=== PATIENT | female | born 1960 | race Caucasian/White ===

== ENCOUNTER 2016-04-27 13:54 | Emergency (ER) | payer MEDICARE, MEDICAID ==
--- NOTE | 2016-04-27 14:03 | ER Document Report ---
ED General <DIAZ RUFF - Last Filed: 04/27/16 15:43> - General Mode of Arrival: Medic Information source: Patient TRAVEL OUTSIDE OF THE [place] IN LAST 30 DAYS: No - HPI Patient complains to provider of: Chest Pain Onset: This afternoon Onset/Duration: Sudden, Better Quality of pain: Sharp, Stabbing Associated symptoms: Headache, Sweating <ANTHONY BEAUCHAMP - Last Filed: 04/27/16 16:13> - General Chief Complaint: Chest Pain > 30 Stated Complaint: CHEST PAIN Notes: Patient is a 55-year-old female presenting to the emergency department concerned of left-sided sharp, stabbing chest pain onset at approximately 0120 today. The pain only lasted for a few minutes, but she was sent here by urgent care with a blood pressure of 175/88. Patient was given nitroglycerin at the urgent care as well as in the ambulance. Patient states her pain resolved after the first nitroglycerin. Prior to that, patient was at her psychiatrist' s office where she had high blood pressure, so that is why she went to urgent care. Patient states for the past 2 weeks she has had constant headache and diaphoresis. Patient also states she has had intermittent heart racing. Patient is prescribed nitroglycerin, although she has never had a heart attack, stent, or cardiac catheterization. (ANTHONY BEAUCHAMP) - Related Data Allergies/Adverse Reactions: tramadol HCl [From [facility]] Allergy (Severe, Verified 04/27/16 14:01) Seizure Past Medical History - General Information source: Patient - Social History Smoking Status: Never Smoker Cigarette use (# per day): No Drug Abuse: None Family History: Reviewed & Not Pertinent - Past Medical History Cardiac Medical History: Reports: Hx Hypercholesterolemia Denies: Hx Heart Attack Pulmonary Medical History: Reports: Hx Pneumonia Denies: Hx COPD Neurological Medical History: Reports: Hx Seizures Psychiatric Medical History: Reports: Hx Anxiety, Hx Bipolar Disorder, Hx Depression Past Surgical History: Reports: Hx Appendectomy, Hx Section - x2, Hx Cholecystectomy, Hx Hysterectomy, Hx Orthopedic Surgery - back-07/16. Denies: Hx Cardiac Catheterization, Hx Cardiac Surgery - Immunizations Hx Diphtheria, Pertussis, Tetanus Vaccination: Yes - 008 <ANTHONY BEAUCHAMP - Last Filed: 04/27/16 16:13> Review of Systems - Review of Systems Constitutional: See HPI, Diaphoresis EENT: No symptoms reported Cardiovascular: See HPI, Chest pain, Heart racing Respiratory: No symptoms reported Gastrointestinal: No symptoms reported Genitourinary: No symptoms reported Female Genitourinary: No symptoms reported Musculoskeletal: No symptoms reported Skin: No symptoms reported Hematologic/Lymphatic: No symptoms reported Neurological/Psychological: See HPI, Headaches -: Yes All other systems reviewed and negative <ANTHONY BEAUCHAMP - Last Filed: 04/27/16 16:13> Physical Exam - General General appearance: Appears well, Alert - HEENT Head: Normocephalic, Atraumatic Eyes: Normal Pupils: PERRL - Respiratory Respiratory status: No respiratory distress Chest status: Nontender Breath sounds: Normal Chest palpation: Normal - Cardiovascular Rhythm: Regular Heart sounds: Normal auscultation Murmur: No - Abdominal Inspection: Normal Distension: No distension Bowel sounds: Normal Tenderness: Nontender Organomegaly: No organomegaly - Back Back: Normal, Nontender - Extremities General upper extremity: Normal inspection General lower extremity: Normal inspection - Neurological Neuro grossly intact: Yes Cognition: Normal Rosmery Coma Scale Eye Opening: Spontaneous Rosmery Coma Scale Verbal: Oriented Rosmery Coma Scale Motor: Obeys Commands Rosmery Coma Scale Total: 15 Speech: Normal - Psychological Associated symptoms: Normal affect, Normal mood - Skin Skin Temperature: Warm Skin Moisture: Dry Skin Color: Normal <ANTHONY BEAUCHAMP - Last Filed: 04/27/16 16:13> - Vital signs Vitals: Pulse Ox 95 04/27/16 14:00 (DIAZ RUFF) Course - Laboratory Result Diagrams: 04/27/16 14:15 04/27/16 14:15 <DIAZ RUFF - Last Filed: 04/27/16 15:43> - Laboratory Result Diagrams: 04/27/16 14:15 04/27/16 14:15 <ANTHONY BEAUCHAMP - Last Filed: 04/27/16 16:13> - Re-evaluation Re-evalutation: 04/27/16 15:28 I personally performed the services described in the documentation, reviewed and edited the documentation which was dictated to my scribe in my presence, and it accurately records my words and actions. Patient presents seem her department the chief complaint of chest pain prior to arrival she said it was sharp and stabbing lasted a few minutes. Patient states that she sees Dr. Quintero historically a read the report records were she had a stress test last year. She has never been diagnosed with an KS or had cardiac stents placed. She states that she takes nitroglycerin every other day. 4 chest pain that lasts seconds and she'll take 2 of them and I'll go away. The chest pain today lasted a few seconds she had been given a nitroglycerin 2 said the first romantic go away. She is not complaining of any recurrent chest pain. None of her symptoms are exertional diaphoretic shortness of breath she's been stable emergency from stable initial enzymes and EKG. We will DC atypical chest pain. Patient's records state that she has a history of angina but there is no documentation that she's ever had an KS stents or even a cardiac catheterization patient confirms this. She is stable for discharge for primary care physician in one day return for increasing worsening or new symptoms 04/27/16 15:31 (DIAZ RUFF) - Vital Signs Vital signs: Temp Pulse Resp BP Pulse Ox 98.4 F 78 13 130/87 H 97 04/27/16 14:13 04/27/16 14:13 04/27/16 14:13 04/27/16 14:13 04/27/16 14:13 (DIAZ RUFF) - EKG Interpretation by Me Additional EKG results interpreted by me: 04/27/16 15:27 EKG interpreted by myself sinus rhythm at [address] segment elevation or depression as compared to the previous EKG (DIAZ RUFF) Discharge <DIAZ RUFF - Last Filed: 04/27/16 15:43> <ANTHONY BEAUCHAMP - Last Filed: 04/27/16 16:13> - Discharge Clinical Impression: Chest pain Qualifiers: Chest pain type: unspecified Qualified Code(s): R07.9 - Chest pain, unspecified Condition: Stable Additional Instructions: Chest Pain of Unclear Cause The exact cause of your chest pain isn't clear. Fortunately, there is no evidence of a dangerous medical condition. Further testing may be required to find the source of the pain. Most often, we find that this pain is coming from the chest wall -- the muscles or rib joints in the chest. But chest pain can come from the lung and lung lining, the esophagus, the heart valves or heart lining, and even the stomach or gallbladder. Rest. Eat lightly until the pain is gone. We may prescribe medicine for pain and inflammation. You should call the physician immediately if the pain radiates to the shoulder, jaw or arms; if you start to run a fever or develop a cough; or if you develop shortness of breath, or other new or alarming symptoms. Referrals: [facility] [Provider Group] - Follow up tomorrow (Call for an appointment to be seen in one to 2 days return for increasing worsening or new symptoms) Scribe Documentation - Scribe Written by Gerson:: Anthony Beauchamp 04/27/2016 14:03 acting as scribe for :: Jurgen <ANTHONY BEAUCHAMP - Last Filed: 04/27/16 16:13>
[2016-04-27 14:32] LABS: ABSOLUTE BASOPHILS # (AUTO) 0.1 10^3/uL (0.0-0.2); ABSOLUTE EOSINOPHILS # (AUTO) 0.2 10^3/uL (0.0-0.6); ABSOLUTE MONOCYTES (AUTO) 0.6 10^3/uL (0.1-1.4); BASOPHILS % (AUTO) 0.8 % (0-2); EOSINOPHILS % (AUTO) 1.9 % (0-6); HEMOGLOBIN 13.6 g/dL (12.0-15.5); HGB HCT DIFFERENCE 0.8; LYMPHOCYTES % (AUTO) 22.8 % (13-45); MEAN CORPUSCULAR HEMOGLOBIN 27.6 pg (27.0-33.4); MEAN CORPUSCULAR HGB CONC 33.9 g/dL (32.0-36.0); MEAN CORPUSCULAR VOLUME 81 fl (80-97); MONOCYTES % (AUTO) 6.8 % (3-13); RED BLOOD COUNT 4.92 10^6/uL (3.72-5.28); RED CELL DISTRIBUTION WIDTH 13.5 % (11.5-14.0); SEGMENTED NEUTROPHILS % (AUTO) 67.7 % (42-78); WHITE BLOOD COUNT 8.9 10^3/uL (4.0-10.5)
[2016-04-27 14:40] LABS: ALANINE AMINOTRANSFERASE 25 U/L (9-52); ALBUMIN 4.9 g/dL (3.5-5.0); ALKALINE PHOSPHATASE 70 U/L (38-126); ANION GAP 11 (5-19); ASPARTATE AMINO TRANSFERASE 25 U/L (14-36); BILIRUBIN,TOTAL 0.6 mg/dL (0.2-1.3); BLOOD UREA NITROGEN 8 mg/dL (7-20); CALCIUM 10.2 mg/dL (8.4-10.2); CARBON DIOXIDE 29 mmol/L (22-30); CHLORIDE 99 mmol/L (98-107); CREATINE KINASE 45 U/L (30-135); CREATININE RESULT 0.58 mg/dL (0.52-1.25); GLUCOSE 99 mg/dL (75-110); POTASSIUM 3.8 mmol/L (3.6-5.0); SODIUM 138.6 mmol/L (137-145); TOTAL PROTEIN 7.6 g/dL (6.3-8.2)
[2016-04-27 14:53] LABS: CREATINE KINASE MB 0.37 ng/mL (<4.55)
[2016-04-27 14:55] LABS: TROPONIN I < 0.012 ng/mL
--- NOTE | 2016-04-27 14:56 | EKG REPORT ---
SEVERITY:- NORMAL ECG - SINUS RHYTHM : Confirmed by: Ina Quintero MD 27-Apr-2016 14:56:17
[2016-04-27 16:33] VITALS: BP 124/103
== END 2016-04-27 16:25 | disposition home or self-care (01) ==
LOC: ER 13:54
DX: R07.89 Other chest pain (principal); R51 Headache; R61 Generalized hyperhidrosis; R00.0 Tachycardia, unspecified; Z88.5 Allergy status to narcotic agent; Z79.899 Other long term (current) drug therapy
CPT/HCPCS: 36415; 71010; 80053; 82550; 82553; 84484; 85025; 93005; 93010; 99285

== ENCOUNTER 2016-07-13 08:39 | Emergency (ER) | payer MEDICAID, MEDICARE ==
[2016-07-13] MEDS ORDERED: NORMAL SALINE 1000 ML 1,000 ML IV ONE (09:11)
[2016-07-13] MEDS ORDERED: PENICILLIN G BENZATHINE 1.2 MILLION UNIT/2 ML DISP.SYRIN IM ONE (09:11)
[2016-07-13] MEDS ORDERED: ONDANSETRON HCL INJ/PF 4 MG/2 ML SDV IV ONE (09:12)
[2016-07-13] MEDS ORDERED: LIDOCAINE 2% VISCOUS SOLN 20 ML UDCUP PO ONE (09:12)
[2016-07-13 10:26] LABS: ANION GAP 11 (5-19); BLOOD UREA NITROGEN 10 mg/dL (7-20); CALCIUM 8.6 mg/dL (8.4-10.2); CARBON DIOXIDE 29 mmol/L (22-30); CHLORIDE 99 mmol/L (98-107); CREATININE RESULT 0.59 mg/dL (0.52-1.25); GLUCOSE 111 mg/dL (75-110); POTASSIUM 3.3 mmol/L (3.6-5.0); SODIUM 139.2 mmol/L (137-145)
[2016-07-13] MEDS ORDERED: DEXAMETHASONE SOD PHOS INJ 10 MG/1 ML VIAL IV ONE (10:43)
--- NOTE | 2016-07-13 10:51 | ER Document Report ---
ED General - General Chief Complaint: Vomiting Stated Complaint: FEVER TRAVEL OUTSIDE OF THE [place] IN LAST 30 DAYS: No - HPI Patient complains to provider of: vomiting fever nausea Onset: Other Notes: Patient coming in for evaluation of nausea vomiting fever. Patient states that she was diagnosed with strep throat yesterday was given azithromycin patient states she is unable to tolerate her azithromycin and continues to vomit. Patient does have a fever upon arrival was able to tolerate liquid Tylenol. Patient otherwise denies any past medical history. - Related Data Allergies/Adverse Reactions: tramadol HCl [From [facility]] Allergy (Severe, Verified 07/13/16 08:46) Seizure Past Medical History - Social History Smoking Status: Never Smoker Chew tobacco use (# tins/day): No Frequency of alcohol use: None Drug Abuse: None Family History: Reviewed & Not Pertinent Patient has suicidal ideation: No Patient has homicidal ideation: No - Past Medical History Cardiac Medical History: Reports: Hx Hypercholesterolemia Denies: Hx Heart Attack Pulmonary Medical History: Reports: Hx Pneumonia Denies: Hx COPD Neurological Medical History: Reports: Hx Seizures Renal/ Medical History: Denies: Hx Peritoneal Dialysis Psychiatric Medical History: Reports: Hx Anxiety, Hx Bipolar Disorder, Hx Depression Past Surgical History: Reports: Hx Appendectomy, Hx Section - x2, Hx Cholecystectomy, Hx Hysterectomy, Hx Orthopedic Surgery - back-07/16. Denies: Hx Cardiac Catheterization, Hx Cardiac Surgery - Immunizations Hx Diphtheria, Pertussis, Tetanus Vaccination: Yes - 008 Review of Systems - Review of Systems Constitutional: Fever EENT: Other - Strep throat Cardiovascular: No symptoms reported Respiratory: No symptoms reported Gastrointestinal: No symptoms reported Genitourinary: No symptoms reported Female Genitourinary: No symptoms reported Musculoskeletal: No symptoms reported Skin: No symptoms reported Hematologic/Lymphatic: No symptoms reported Neurological/Psychological: No symptoms reported -: Yes All other systems reviewed and negative Physical Exam - Vital signs Vitals: Temp Pulse Resp BP Pulse Ox 101.9 F H 107 H 16 102/70 96 07/13/16 08:46 07/13/16 08:46 07/13/16 08:46 07/13/16 08:46 07/13/16 08:46 Interpretation: Normal - General General appearance: Appears well, Alert - HEENT Head: Normocephalic, Atraumatic Eyes: Normal Conjunctiva: Normal Cornea: Normal Extraocular movements intact: Yes Eyelashes: Normal Pupils: PERRL Ears: Normal External canal: Normal Tympanic membrane: Normal Sinus: Normal Nasal: Normal Pharynx: Erythema Neck: Normal - Respiratory Respiratory status: No respiratory distress Chest status: Nontender Breath sounds: Normal Chest palpation: Normal - Cardiovascular Rhythm: Regular Heart sounds: Normal auscultation Murmur: No - Abdominal Inspection: Normal Distension: No distension Bowel sounds: Normal Tenderness: Nontender Organomegaly: No organomegaly - Back Back: Normal, Nontender - Extremities General upper extremity: Normal inspection, Nontender, Normal color, Normal ROM , Normal temperature General lower extremity: Normal inspection, Nontender, Normal color, Normal ROM , Normal temperature, Normal weight bearing. No: Jason's sign - Neurological Neuro grossly intact: Yes Cognition: Normal Orientation: AAOx4 Rosmery Coma Scale Eye Opening: Spontaneous Rosmery Coma Scale Verbal: Oriented Rosmery Coma Scale Motor: Obeys Commands Thoreau Coma Scale Total: 15 Speech: Normal Motor strength normal: LUE, RUE, LLE, RLE Sensory: Normal - Psychological Associated symptoms: Normal affect, Normal mood - Skin Skin Temperature: Warm Skin Moisture: Dry Skin Color: Normal Course - Re-evaluation Re-evalutation: 07/13/16 14:25 Patient's laboratory data showed hypokalemia. Patient was able tolerate orals. Patient was given a dose of Bicillin for her previous diagnosis strep throat. Patient's temperature did improve Tylenol. Patient also be given a dose of Decadron patient states feeling better after medical treatment will be discharged home - Vital Signs Vital signs: Temp Pulse Resp BP Pulse Ox 99.3 F 81 19 108/60 97 07/13/16 11:24 07/13/16 11:24 07/13/16 11:24 07/13/16 11:24 07/13/16 11:24 - Laboratory Result Diagrams: 07/13/16 09:50 Laboratory results interpreted by me: 07/13/16 09:50 Potassium 3.3 L Glucose 111 H Discharge - Discharge Clinical Impression: Strep throat, Medication side effects, Hypokalemia Nausea & vomiting Qualifiers: Vomiting type: unspecified Vomiting Intractability: unspecified Qualified Code( s): R11.2 - Nausea with vomiting, unspecified Condition: Good Disposition: HOME, SELF-CARE Instructions: Vomiting ([facility]), Strep Throat ([facility]), Fever ([facility]), Hypokalemia ([facility] ) Additional Instructions: Laboratory today shows no critical etiology. More likely her nausea vomiting was exacerbated due to the azithromycin. We gave you a shot of penicillin today that will cure your strep throat. You may take the Magic mouthwash as prescribed for throat pain. Zofran for nausea. You may take Tylenol Motrin for fevers and generalized pain. Return to ER symptoms worsen follow-up primary care physician. Prescriptions: Magic Mouthwash 5 ml PO Q6 #120 Ondansetron [Zofran Odt 4 mg Tablet] 1 - 2 tab PO Q4H PRN #20 tab.rapdis PRN Reason: For Nausea/Vomiting Forms: Return to Work
[2016-07-13 11:27] VITALS: BP 108/60
== END 2016-07-13 11:25 | disposition home or self-care (01) ==
LOC: ER 08:39
DX: J02.0 Streptococcal pharyngitis (principal); E87.6 Hypokalemia; R11.2 Nausea with vomiting, unspecified; R50.9 Fever, unspecified
CPT/HCPCS: 99283; 96372; 96361; 96374; 96375; 36415; 80048; J3490; J0561; J2405; J7030; J1100

== ENCOUNTER 2016-08-25 13:28 | Emergency (ER) | payer MEDICARE ==
[2016-08-25 13:42] VITALS: BP 104/76
--- NOTE | 2016-08-25 18:39 | EKG REPORT ---
SEVERITY:- ABNORMAL ECG - SINUS RHYTHM PROBABLE INFERIOR INFARCT, AGE INDETERMINATE CONSIDER POSTERIOR WALL INVOLVEMENT : Confirmed by: Brian Amor MD 25-Aug-2016 18:38:54
== END 2016-08-25 13:40 | disposition left against medical advice (07) ==
LOC: ER 13:28
DX: Z53.21 Procedure and treatment not carried out due to patient leaving prior to being seen by health care provider (principal)
CPT/HCPCS: 93005; 93010

== ENCOUNTER 2016-10-27 23:27 | Emergency (ER) | payer MEDICARE, MEDICAID ==
[2016-10-28] MEDS ORDERED: ASPIRIN 81 MG TABLET, CHEWABLE PO ONE
[2016-10-28] MEDS ORDERED: ASPIRIN 81 MG TABLET, CHEWABLE ONE (00:03)
[2016-10-28 00:12] LABS: ABSOLUTE BASOPHILS # (AUTO) 0.1 10^3/uL (0.0-0.2); ABSOLUTE EOSINOPHILS # (AUTO) 0.2 10^3/uL (0.0-0.6); ABSOLUTE LYMPHOCYTES (AUTO) 2.8 10^3/uL (0.5-4.7); ABSOLUTE MONOCYTES (AUTO) 0.6 10^3/uL (0.1-1.4); ABSOLUTE NEUT (AUTO) 4.9 10^3/uL (1.7-8.2); BASOPHILS % (AUTO) 0.7 % (0-2); EOSINOPHILS % (AUTO) 2.7 % (0-6); HEMATOCRIT 38.5 % (36.0-47.0); HEMOGLOBIN 13.4 g/dL (12.0-15.5); HGB HCT DIFFERENCE 1.7; LYMPHOCYTES % (AUTO) 32.9 % (13-45); MEAN CORPUSCULAR HEMOGLOBIN 28.1 pg (27.0-33.4); MEAN CORPUSCULAR HGB CONC 34.8 g/dL (32.0-36.0); MEAN CORPUSCULAR VOLUME 81 fl (80-97); MONOCYTES % (AUTO) 7.5 % (3-13); RED BLOOD COUNT 4.78 10^6/uL (3.72-5.28); RED CELL DISTRIBUTION WIDTH 13.2 % (11.5-14.0); SEGMENTED NEUTROPHILS % (AUTO) 56.2 % (42-78); WHITE BLOOD COUNT 8.6 10^3/uL (4.0-10.5)
--- NOTE | 2016-10-28 00:14 | ER Document Report ---
ED Cardiac <ADDI NORTON - Last Filed: 10/28/16 01:11> - General Mode of Arrival: Wheelchair Information source: Patient TRAVEL OUTSIDE OF THE [place] IN LAST 30 DAYS: No - HPI Patient complains to provider of: Chest pain Similar symptoms previously: Yes Recently seen / treated by doctor: No <EDA BERMUDEZ - Last Filed: 10/28/16 01:31> - General Chief Complaint: Chest Pain Stated Complaint: CHEST PAIN Time Seen by Provider: 10/28/16 00:15 Notes: Patient is a 36-year-old female emergency department for chest pain. Patient states that her chest pain was onset at 19:00 this evening and she placed a nitroglycerin patch on the that time. Patient states her chest pain went away at around 19:10. Patient was able to go to sleep her chest pain woke her up at around 22:30-22:45. Patient states her pain for intermittent for about 1 hour until she arrived to the emergency department. Patient states her pain is located in the left side of her breasts, left chest wall, and her left arm and radiating down her left arm. Patient states this pain is different from the previous pain. Patient had a normal echo and normal nuclear medicine stress test 2 years ago. Patient's datastage architect is Dr. Quintero. Patient also had a normal chest x-ray a few months ago which showed a normal heart size. Patient denies any history of cardiac catheterization or stents. (EDA BERMUDEZ) - Related Data Allergies/Adverse Reactions: tramadol HCl [From [facility]] Allergy (Severe, Verified 07/13/16 08:46) Seizure Past Medical History - General Information source: Patient - Social History Smoking Status: Never Smoker Drug Abuse: None Family History: None Patient has suicidal ideation: No Patient has homicidal ideation: No - Past Medical History Cardiac Medical History: Reports: Hx Hypercholesterolemia Pulmonary Medical History: Reports: Hx Pneumonia Neurological Medical History: Reports: Hx Seizures Psychiatric Medical History: Reports: Hx Anxiety, Hx Bipolar Disorder, Hx Depression Past Surgical History: Reports: Hx Appendectomy, Hx Section - x2, Hx Cholecystectomy, Hx Hysterectomy, Hx Orthopedic Surgery - back-07/16 - Immunizations Hx Diphtheria, Pertussis, Tetanus Vaccination: Yes - 008 <EDA BERMUDEZ - Last Filed: 10/28/16 01:31> Review of Systems - Review of Systems Constitutional: No symptoms reported EENT: No symptoms reported Cardiovascular: See HPI, Chest pain Respiratory: No symptoms reported Gastrointestinal: No symptoms reported Genitourinary: No symptoms reported Female Genitourinary: No symptoms reported Musculoskeletal: No symptoms reported Skin: No symptoms reported Hematologic/Lymphatic: No symptoms reported Neurological/Psychological: No symptoms reported -: Yes All other systems reviewed and negative <EDA BERMUDEZ - Last Filed: 10/28/16 01:31> Physical Exam <ERROLADDI - Last Filed: 10/28/16 01:11> - Vital signs Interpretation: Normal <EDA BERMUDEZ - Last Filed: 10/28/16 01:31> - Vital signs Vitals: Temp Pulse Resp BP Pulse Ox 98.0 F 107 H 18 111/80 96 10/27/16 23:30 10/27/16 23:30 10/27/16 23:30 10/27/16 23:30 10/27/16 23:30 - Notes Notes: GENERAL: Alert, interacts well. No acute distress. HEAD: Normocephalic, atraumatic. EYES: Appear normal. Pupils equal, round, and reactive to light. ENT: Moist mucus membranes, tongue midline. NECK: Full range of motion. Supple. Trachea midline. LUNGS: Clear to auscultation bilaterally, no wheezes, rales, or rhonchi. No respiratory distress. No chest wall tenderness to palpation. HEART: Regular rate and rhythm. No murmurs, gallops, or rubs. ABDOMEN: Soft, non-tender. Non-distended. Normal bowel sounds. EXTREMITIES: Moves all 4 extremities spontaneously. Normal strength. No edema. NEUROLOGICAL: Alert and oriented x3. Normal speech. No focal neurological deficits. GSC 15. PSYCH: Normal affect, normal mood. SKIN: Warm, dry, normal turgor. No rashes or lesions noted. (EDA BERMUDEZ) Course - Laboratory Result Diagrams: 10/27/16 23:58 10/27/16 23:58 - Diagnostic Test Radiology reviewed: Image reviewed, Reports reviewed - EKG Interpretation by Nd EKG shows normal: Sinus rhythm - Chest x-ray is unremarkable., [place], Intervals, QRS Complexes. abnormal: ST-T Waves - Diffuse nonspecific repolarization abnormality Rate: Normal - 97 Rhythm: NSR When compared to previous EKG there are: No significant change - Review of several EKG shows she has had this repolarization abnormality off and on for the past few years. <ADDI NORTON - Last Filed: 10/28/16 01:11> - Laboratory Result Diagrams: 10/27/16 23:58 10/27/16 23:58 <EDA BERMUDEZ - Last Filed: 10/28/16 01:31> - Re-evaluation Re-evalutation: 10/28/16 01:13 EKG does not show acute changes, shows diffuse repolarization abnormality which is been present off and on for the past few years. Troponins are undetectable. The patient did have a negative nuclear medicine stress test 2 years ago and a normal echocardiogram 2 years ago. By history, she has never had a cardiac catheterization. She does have nitroglycerin which she states was provided by her datastage architect, but the reason for this is unclear. (ADDI NORTON) - Vital Signs Vital signs: Temp Pulse Resp BP Pulse Ox 98.0 F 107 H 9 L 101/74 94 10/27/16 23:30 10/27/16 23:30 10/28/16 01:20 10/28/16 01:17 10/28/16 01:20 Discharge <ADDI NORTON - Last Filed: 10/28/16 01:11> <EDA BERMUDEZ - Last Filed: 10/28/16 01:31> - Discharge Clinical Impression: Chest pain Qualifiers: Chest pain type: unspecified Qualified Code(s): R07.9 - Chest pain, unspecified Condition: Stable Disposition: HOME, SELF-CARE Additional Instructions: Chest Pain of Unclear Cause: The exact cause of your chest pain isn't clear. Fortunately, there is no evidence of a dangerous medical condition. Further testing may be required to find the source of the pain. Most often, we find that this pain is coming from the chest wall -- the muscles or rib joints in the chest. But chest pain can come from the lung and lung lining, the esophagus, the heart valves or heart lining, and even the stomach or gallbladder. Rest. Eat lightly until the pain is gone. We may prescribe medicine for pain and inflammation. You should call the physician immediately if the pain radiates to the shoulder, jaw or arms; if you start to run a fever or develop a cough; or if you develop shortness of breath, or other new or alarming symptoms. Follow-up with your primary care provider or your datastage architect Monday(today) for recheck. Return to the emergency room if any problems. RETURN TO THE EMERGENCY ROOM IF ANY NEW OR WORSENING SYMPTOMS. Scribe Attestation: 10/28/16 01:14 I personally performed the services described in the documentation, reviewed and edited the documentation which was dictated to the scribe in my presence, and it accurately records my words and actions. (ADDI NORTON) Scribe Documentation - Scribe Written by Gerson:: Gerson Espinosa 10/28/16 1:25 acting as scribe for :: Errol <EDA BERMUDEZ - Last Filed: 10/28/16 01:31>
--- NOTE | 2016-10-28 00:17 | RADIOLOGY REPORT (SQ) ---
EXAM DESCRIPTION: CHEST SINGLE VIEW COMPLETED DATE/TIME: 10/28/2016 12:09 am REASON FOR STUDY: cp COMPARISON: 04/27/2016 EXAM PARAMETERS: NUMBER OF VIEWS: One view. TECHNIQUE: Single frontal radiographic view of the chest acquired. RADIATION DOSE: NA LIMITATIONS: None. FINDINGS: LUNGS AND PLEURA: Small chronic atelectasis or scar of the left lower hemithorax. Otherw ise, No opacities, masses or pneumothorax. No pleural effusion. MEDIASTINUM AND HILAR STRUCTURES: No masses. Contour normal. HEART AND VASCULAR STRUCTURES: Heart normal in size. Normal vasculature. BONES: No acute findings. Moderate dextro convexity. HARDWARE: None in the chest. OTHER: No other significant finding. IMPRESSION: NO ACUTE RADIOGRAPHIC FINDING IN THE CHEST. TECHNICAL DOCUMENTATION: JOB ID: [id number]
[2016-10-28 00:29] LABS: ALANINE AMINOTRANSFERASE 19 U/L (9-52); ALBUMIN 4.5 g/dL (3.5-5.0); ALKALINE PHOSPHATASE 57 U/L (38-126); ANION GAP 11 (5-19); ASPARTATE AMINO TRANSFERASE 20 U/L (14-36); BILIRUBIN,DIRECT 0.3 mg/dL (0.0-0.4); BILIRUBIN,TOTAL 0.4 mg/dL (0.2-1.3); BLOOD UREA NITROGEN 10 mg/dL (7-20); CARBON DIOXIDE 29 mmol/L (22-30); CHLORIDE 100 mmol/L (98-107); CREATINE KINASE 40 U/L (30-135); CREATININE RESULT 0.71 mg/dL (0.52-1.25); GLUCOSE 102 mg/dL (75-110); POTASSIUM 3.7 mmol/L (3.6-5.0); SODIUM 139.7 mmol/L (137-145); TOTAL PROTEIN 7.5 g/dL (6.3-8.2)
[2016-10-28 00:41] LABS: CREATINE KINASE MB 0.43 ng/mL (<4.55)
[2016-10-28 00:49] LABS: TROPONIN I < 0.012 ng/mL
[2016-10-28 01:22] VITALS: BP 101/74
--- NOTE | 2016-10-28 12:15 | EKG REPORT ---
SEVERITY:- ABNORMAL ECG - SINUS RHYTHM NONSPECIFIC REPOL ABNORMALITY, DIFFUSE LEADS : Confirmed by: Ina Quintero MD 28-Oct-2016 12:14:25
== END 2016-10-28 01:27 | disposition home or self-care (01) ==
LOC: ER 23:27
DX: R07.9 Chest pain, unspecified (principal)
CPT/HCPCS: 93005; 99285; 36415; 82553; 82550; 85025; 80053; 84484; 71010; 93010; A9270

== ENCOUNTER 2016-12-01 17:35 | Emergency (ER) | payer MEDICARE ==
--- NOTE | 2016-12-01 18:26 | ER Document Report ---
ED Medical Screen (RME) - General Chief Complaint: Abdominal Pain Stated Complaint: ABDOMINAL PAIN Time Seen by Provider: 12/01/16 18:24 Mode of Arrival: Medic Information source: Patient Notes: This is a 56-year-old female who is brought in by EMS with diffuse abdominal pain, nausea and vomiting. The patient does have a history of chronic back pain (back surgery in the past) and is followed by pain management (Dr Kim.in [place]). The patient states that she had been constipated for the last several days and last night she pushed so hard, she "felt something rip". Patient states she did have a large bowel movement (like a rock) last night after this event. She states when she woke up this morning, she had diffuse abdominal pain, nausea and vomiting. Patient states she is not been able to tolerate any water. Medications: Percocet 30, Opana 15, Seroquel 150, trazodone 75, Xanax 1 Allergies: None Primary CARE physician: She is currently "in between" primary care physicians TRAVEL OUTSIDE OF THE [place] IN LAST 30 DAYS: No - Related Data Allergies/Adverse Reactions: tramadol HCl [From [facility]] Allergy (Severe, Verified 07/13/16 08:46) Seizure Past Medical History - Past Medical History Cardiac Medical History: Reports: Hx Hypercholesterolemia Denies: Hx Heart Attack Pulmonary Medical History: Reports: Hx Pneumonia Denies: Hx COPD Neurological Medical History: Reports: Hx Seizures Renal/ Medical History: Denies: Hx Peritoneal Dialysis Psychiatric Medical History: Reports: Hx Anxiety, Hx Bipolar Disorder, Hx Depression Past Surgical History: Reports: Hx Appendectomy, Hx Section - x2, Hx Cholecystectomy, Hx Hysterectomy, Hx Orthopedic Surgery - back-07/16. Denies: Hx Cardiac Catheterization, Hx Cardiac Surgery - Immunizations Hx Diphtheria, Pertussis, Tetanus Vaccination: Yes - 008 Physical Exam - Vital signs Vitals: Temp Pulse Resp BP Pulse Ox 97.1 F 90 22 H 159/101 H 97 12/01/16 17:48 12/01/16 17:48 12/01/16 17:48 12/01/16 17:48 12/01/16 17:48 Course - Vital Signs Vital signs: Temp Pulse Resp BP Pulse Ox 97.1 F 90 22 H 159/101 H 97 12/01/16 17:48 12/01/16 17:48 12/01/16 17:48 12/01/16 17:48 12/01/16 17:48
[2016-12-01] MEDS ORDERED: NORMAL SALINE 1000 ML 1,000 ML IV PRN (18:27)
[2016-12-01] MEDS ORDERED: ONDANSETRON HCL INJ/PF 4 MG/2 ML SDV IV ONE (18:28)
[2016-12-01 18:59] LABS: ABSOLUTE BASOPHILS # (AUTO) 0.1 10^3/uL (0.0-0.2); ABSOLUTE LYMPHOCYTES (AUTO) 1.9 10^3/uL (0.5-4.7); ABSOLUTE MONOCYTES (AUTO) 0.6 10^3/uL (0.1-1.4); ABSOLUTE NEUT (AUTO) 15.9 10^3/uL (1.7-8.2); BASOPHILS % (AUTO) 0.4 % (0-2); EOSINOPHILS % (AUTO) 0.1 % (0-6); HEMATOCRIT 47.2 % (36.0-47.0); HEMOGLOBIN 16.6 g/dL (12.0-15.5); HGB HCT DIFFERENCE 2.6; LYMPHOCYTES % (AUTO) 10.3 % (13-45); MEAN CORPUSCULAR HEMOGLOBIN 27.9 pg (27.0-33.4); MEAN CORPUSCULAR HGB CONC 35.2 g/dL (32.0-36.0); MEAN CORPUSCULAR VOLUME 79 fl (80-97); MONOCYTES % (AUTO) 3.4 % (3-13); RED BLOOD COUNT 5.96 10^6/uL (3.72-5.28); RED CELL DISTRIBUTION WIDTH 13.3 % (11.5-14.0); SEGMENTED NEUTROPHILS % (AUTO) 85.8 % (42-78); WHITE BLOOD COUNT 18.6 10^3/uL (4.0-10.5)
--- NOTE | 2016-12-01 19:21 | ER Document Report ---
ED GI/ - General Mode of Arrival: Medic Information source: Patient TRAVEL OUTSIDE OF THE [place] IN LAST 30 DAYS: No - HPI Patient complains to provider of: Abdominal pain, Other - constipation Onset: Just prior to arrival Recently seen / treated by doctor: Yes <ROSALIND SNEED - Last Filed: 12/02/16 00:34> <DIAZ RUFF - Last Filed: 12/02/16 03:31> - General Chief Complaint: Abdominal Pain Stated Complaint: ABDOMINAL PAIN Time Seen by Provider: 12/01/16 18:24 Notes: Patient is a 56-year-old female who presents to the emergency department today with complaints of constipation with associated vomiting and abdominal pain. Patient is on opiates chronically and she states that she frequently has constipation. Patient states yesterday she "strained as hard as she could" and woke up this morning with upper abdominal pain. Patient states she has been unable to keep anything down today. Patient states she has tried stool softeners with little relief. (ROSALIND SNEED) - Related Data Allergies/Adverse Reactions: tramadol HCl [From [facility]] Allergy (Severe, Verified 07/13/16 08:46) Seizure Past Medical History - General Information source: Patient - Social History Smoking Status: Never Smoker Cigarette use (# per day): No Chew tobacco use (# tins/day): No Frequency of alcohol use: None Drug Abuse: None Lives with: Family Family History: None - Past Medical History Cardiac Medical History: Reports: Hx Hypercholesterolemia Pulmonary Medical History: Reports: Hx Pneumonia Neurological Medical History: Reports: Hx Seizures Psychiatric Medical History: Reports: Hx Anxiety, Hx Bipolar Disorder, Hx Depression Past Surgical History: Reports: Hx Appendectomy, Hx Section - x2, Hx Cholecystectomy, Hx Gynecologic Surgery - tubal, Hx Hysterectomy, Hx Orthopedic Surgery - back-07/16, Hx Tubal Ligation - Immunizations Hx Diphtheria, Pertussis, Tetanus Vaccination: Yes - 008 <ROSALIND SNEED - Last Filed: 12/02/16 00:34> Review of Systems - Review of Systems Constitutional: No symptoms reported EENT: No symptoms reported Cardiovascular: No symptoms reported Respiratory: No symptoms reported Gastrointestinal: See HPI, Abdominal pain, Vomiting, Constipation. denies: Blood in vomit, Rectal bleeding Genitourinary: No symptoms reported Female Genitourinary: No symptoms reported Musculoskeletal: No symptoms reported Skin: No symptoms reported Hematologic/Lymphatic: No symptoms reported Neurological/Psychological: No symptoms reported -: Yes All other systems reviewed and negative <NARENTRACYROSALIND - Last Filed: 12/02/16 00:34> Physical Exam <NARENROSALIND - Last Filed: 12/02/16 00:34> <ELIAN RUFFMY - Last Filed: 12/02/16 03:31> - Vital signs Vitals: Pulse BP Pulse Ox 90 159/101 H 98 12/01/16 17:46 12/01/16 17:46 12/01/16 17:46 - Notes Notes: Physical Exam: General: Alert, appears well. HEENT: Normocephalic. Atraumatic. PERRL. Extraocular movements intact. Oropharynx clear. Neck: Supple. Non-tender. Respiratory: No respiratory distress. Clear and equal breath sounds bilaterally. Cardiovascular: Regular rate and rhythm. Abdominal: Mild diffuse abdominal tenderness. No distension. Normal Bowel Sounds. Back: Non-tender. No deformity or step off. Extremities: Moves all four extremities. Upper extremities: Normal inspection. Normal ROM. Lower extremities: Normal inspection. No edema. Normal ROM. Neurological: Normal cognition. AAOx4. Normal speech. Psychological: Normal affect. Normal Mood. Skin: Warm. Dry. Normal color. (ROSALIND SNEED) Course - Laboratory Result Diagrams: 12/01/16 18:50 12/01/16 18:50 <ROSALIND SNEED - Last Filed: 12/02/16 00:34> - Laboratory Result Diagrams: 12/01/16 18:50 12/01/16 18:50 <DIAZ RUFF - Last Filed: 12/02/16 03:31> - Re-evaluation Re-evalutation: 12/02/16 00:29 Patient presents emerged from chief plan abdominal pain. Patient has a history of chronic pain and is on chronic narcotics had constipation prior to that and has had persistent progressive constipation since she has been on the narcotics. She does not have a bowel movement for several days at a time. Yesterday she was straining aggressively to try to have a bowel movement she had a large bolus of bowel movement went to bed and woke up the next morning with pain in the middle part of her abdomen. In addition to that she has had a couple episodes of vomiting but no diarrhea. No fever no chills no chest pain or shortness of breath no flank pain or urinary symptoms. On examination she is well-appearing nontoxic nausea is controlled with Zofran abdomen mild tenderness in the mid abdomen certainly no guarding rebound rigidity pulsatile dullness or hernias. Acute abdominal series was negative proceeded to try to do an oral contrast CT patient could not keep the oral contrast down and was vomiting. At this point I did a CT without oral contrast she does not have an obstruction she does not have constipation. Reassessed her multiple examinations her belly soft no tenderness guarding rebound rigidity or peritoneal signs. At this point in a discharge her to home I wrote a hand prescription form of Zantac to deal with the issues of constipation related to narcotics. She is going to follow primary care physician in 1-2 days and discussed reasons for ED return sooner (DIAZ RUFF) - Vital Signs Vital signs: Temp Pulse Resp BP Pulse Ox 98.8 F 96 16 139/83 H 96 12/02/16 00:20 12/02/16 00:20 12/02/16 00:20 12/02/16 00:20 12/02/16 00:20 - Laboratory Laboratory results interpreted by me: 12/01/16 12/01/16 12/01/16 18:50 18:50 20:40 WBC 18.6 H RBC 5.96 H Hgb 16.6 H Hct 47.2 H MCV 79 L Seg Neutrophils % 85.8 H Lymphocytes % 10.3 L Absolute Neutrophils 15.9 H Potassium 3.1 L Chloride 95 L Glucose 161 H Calcium 11.2 H Total Protein 9.0 H Albumin 5.3 H Urine Protein 30 H Urine Ketones 80 H Discharge <ROSALIND SNEED - Last Filed: 12/02/16 00:34> <DIAZ RUFF - Last Filed: 12/02/16 03:31> - Discharge Clinical Impression: Abdominal pain Qualifiers: Abdominal location: unspecified location Qualified Code(s): R10.9 - Unspecified abdominal pain Condition: Stable Disposition: HOME, SELF-CARE Instructions: Abdominal Pain ([facility]) Additional Instructions: Abdominal Pain There are many causes of abdominal pain. Pain can mean a serious problem requiring surgery (such as appendicitis). It can also be an innocent problem that goes away on its own (such as a viral infection). Often, time must pass to determine the cause of pain. The physician does not feel that hospitalization is necessary, at present. Things may change within the next 24 hours. Call the doctor or come back for re- examination if any problems occur, such as: (1) Pain that becomes more severe, steady, or becomes concentrated in one specific area. Also, pain that is more severe with movement or coughing. (2) Vomiting that persists or becomes more frequent. (3) Blood in the vomitus, urine, or bowel movements. Blood in the stool may have a tarry or black appearance. (4) Shaking chills or fever greater than 100 degrees F. (5) The abdomen becomes more distended or swollen. (6) Bowel movements cease. (7) Failure to improve as expected. Follow up with your primary care physician in 2-3 days return for increasing worsening or new symptoms Scribe Attestation: 12/02/16 00:18 I personally performed the services described in the documentation reviewed the documentation recorded by my scribe in my presence and it accurately and completely records my words and actions (DIAZ RUFF) Scribe Documentation - Scribe Written by Gerson:: Gerson Carballo, 12/02/2016 0033 acting as scribe for :: Jurgen <ROSALIND SNEED - Last Filed: 12/02/16 00:34>
[2016-12-01 19:27] LABS: ALANINE AMINOTRANSFERASE 19 U/L (9-52); ALBUMIN 5.3 g/dL (3.5-5.0); ALKALINE PHOSPHATASE 105 U/L (38-126); ANION GAP 18 (5-19); ASPARTATE AMINO TRANSFERASE 36 U/L (14-36); BILIRUBIN,DIRECT 0.4 mg/dL (0.0-0.4); BILIRUBIN,TOTAL 1.1 mg/dL (0.2-1.3); BLOOD UREA NITROGEN 7 mg/dL (7-20); CALCIUM 11.2 mg/dL (8.4-10.2); CARBON DIOXIDE 28 mmol/L (22-30); CHLORIDE 95 mmol/L (98-107); CREATININE RESULT 0.66 mg/dL (0.52-1.25); GLUCOSE 161 mg/dL (75-110); LIPASE 69.5 U/L (23-300); POTASSIUM 3.1 mmol/L (3.6-5.0); SODIUM 141.3 mmol/L (137-145)
--- NOTE | 2016-12-01 19:56 | RADIOLOGY REPORT (SQ) ---
EXAM DESCRIPTION: ACUTE ABDOMEN SERIES COMPLETED DATE/TIME: 12/01/2016 7:30 pm REASON FOR STUDY: n/v/abdominal pain COMPARISON: None. NUMBER OF VIEWS: Three views. TECHNIQUE: PA chest, supine abdomen and upright/decubitus abdomen radiographic images acquired. LIMITATIONS: None. FINDINGS: CHEST: Lungs clear of infiltrates. FREE AIR: None. No abnormal gas collections. BOWEL GAS PATTERN: Few scattered mildly dilated small bowel loops with air fluid levels. . CALCIFICATIONS: No suspicious calcifications. HARDWARE: Cholecystectomy clips. SOFT TISSUES: No gross mass or suggestion of organomegaly. BONES: No acute fracture. Thoracolumbar scoliosis. . OTHER: No other significant finding. IMPRESSION: Few scattered mildly dilated small bowel loops with air fluid levels, possible developin g obstruction. TECHNICAL DOCUMENTATION: JOB ID: [id number] [employer]- All Rights Reserved
[2016-12-01 21:13] LABS: AMORPHOUS SEDIMENT,URINE 1+ /HPF; APPEARANCE,URINE TURBID; BILIRUBIN,URINE NEGATIVE (NEGATIVE); GLUCOSE, URINE NEGATIVE (NEGATIVE); KETONES,URINE 80 mg/dL (NEGATIVE); LEUKOCYTE ESTERASE,URINE NEGATIVE (NEGATIVE); NITRITE,URINE NEGATIVE (NEGATIVE); PROTEIN,URINE 30 mg/dL (NEGATIVE); URINE SPECIFIC GRAVITY 1.011; UROBILINOGEN,URINE NEGATIVE mg/dL (<2.0)
--- NOTE | 2016-12-01 22:36 | RADIOLOGY REPORT (SQ) ---
EXAM DESCRIPTION: CT ABD/PELVIS NO ORAL OR IV COMPLETED DATE/TIME: 12/01/2016 10:14 pm REASON FOR STUDY: abdominal pain cant keep contrast down COMPARISON: None. TECHNIQUE: CT scan of the abdomen and pelvis performed without intravenous or oral contrast. Images reviewed with lung, soft tissue, and bone windows. Reconstructed coronal and sagittal MPR images revi ewed. All images stored on PACS. All CT scanners at this facility use dose modulation, iterative reconstruction, and/or weight based d osing when appropriate to reduce radiation dose to as low as reasonably achievable (ALARA). [facility]: Dose Right [facility]: CareDose [facility]: Dose Right [facility]: Teradose 4D [facility]: [employer] RADIATION DOSE: Up-to-date CT equipment and radiation dose reduction techniques were employed. CTDIv ol: 5.2 mGy. DLP: 252 mGy-cm.mGy. LIMITATIONS: None. FINDINGS: LOWER CHEST: No significant findings. No nodules or infiltrates. NON-CONTRASTED LIVER, SPLEEN, ADRENALS: Evaluation limited by lack of IV contrast. No identified sign ificant masses. PANCREAS: No masses. Mild peripancreatic inflammatory changes. GALLBLADDER: Surgically absent. RIGHT KIDNEY AND URETER: No suspicious masses. Assessment limited by lack of IV contrast. No signif icant calcifications. No hydronephrosis or hydroureter. LEFT KIDNEY AND URETER: No suspicious masses. Assessment limited by lack of IV contrast. No signifi cant calcifications. No hydronephrosis or hydroureter. AORTA AND RETROPERITONEUM: No aneurysm. No retroperitoneal masses or adenopathy. BOWEL AND PERITONEAL CAVITY: No obvious masses or inflammatory changes. No free fluid. APPENDIX: Not visualized. PELVIS, BLADDER, AND ABDOMINAL WALL:No abnormal masses. Moderate free fluid. Bladder normal. BONES: No significant findings. OTHER: No other significant finding. IMPRESSION: Mild peripancreatic inflammatory changes. Moderate pelvic free fluid. COMMENT: Quality ID # [id number]: Final reports with documentation of one or more dose reduction techniques (e.g., Automated exposure control, adjustment of the mA and/or kV according to patient size, use of iterative reconstruction technique) TECHNICAL DOCUMENTATION: JOB ID: [id number]- All Rights Reserved
[2016-12-02 00:41] VITALS: BP 132/78
== END 2016-12-02 00:35 | disposition home or self-care (01) ==
LOC: ER 17:35
DX: R10.9 Unspecified abdominal pain (principal); R11.10 Vomiting, unspecified
CPT/HCPCS: 99284; 96361; 96374; 36415; 83690; 85025; 80053; 81001; 74022; 74176; J2405; J7030

== ENCOUNTER 2017-10-22 11:20 | Observation (INO) | payer MEDICARE ==
[2017-10-22] MEDS ORDERED: ASPIRIN 81 MG TABLET, CHEWABLE PO ONE (12:00)
[2017-10-22] MEDS ORDERED: METOCLOPRAMIDE HCL ORAL SOLN 10 MG/10 ML UDCUP PO ONE (12:01)
[2017-10-22] MEDS ORDERED: LIDOCAINE 2% VISCOUS SOLN 20 ML UDCUP PO ONE (12:01)
[2017-10-22] MEDS ORDERED: MAG HYDROX/AL HYDROX/SIMETH SUSP 30 ML UDCUP PO ONE (12:01)
--- NOTE | 2017-10-22 12:01 | ER Document Report ---
ED Medical Screen (RME) - General Chief Complaint: Chest Pain Stated Complaint: CHEST PAIN Time Seen by Provider: 10/22/17 12:00 TRAVEL OUTSIDE OF THE [place] IN LAST 30 DAYS: No - HPI Notes: 10/22/17 12:01 Chest pain yesterday continues today nausea vomiting did - Related Data Allergies/Adverse Reactions: tramadol HCl [From [facility]] Allergy (Severe, Verified 10/22/17 11:24) Seizure Past Medical History - Social History Chew tobacco use (# tins/day): No Frequency of alcohol use: None Drug Abuse: None - Past Medical History Cardiac Medical History: Reports: Hx Hypercholesterolemia Denies: Hx Heart Attack Pulmonary Medical History: Reports: Hx Pneumonia Denies: Hx COPD Neurological Medical History: Reports: Hx Seizures Renal/ Medical History: Denies: Hx Peritoneal Dialysis Psychiatric Medical History: Reports: Hx Anxiety, Hx Bipolar Disorder, Hx Depression Past Surgical History: Reports: Hx Appendectomy, Hx Section - x2, Hx Cholecystectomy, Hx Gynecologic Surgery - tubal, Hx Hysterectomy, Hx Orthopedic Surgery - back-07/16, Hx Tubal Ligation. Denies: Hx Cardiac Catheterization, Hx Cardiac Surgery - Immunizations Hx Diphtheria, Pertussis, Tetanus Vaccination: Yes - 008 Review of Systems - Review of Systems Cardiovascular: Chest pain Physical Exam - Vital signs Vitals: Temp Pulse Resp BP Pulse Ox 99.1 F 100 20 124/92 H 98 10/22/17 11:42 10/22/17 11:42 10/22/17 11:42 10/22/17 11:42 10/22/17 11:42 - Respiratory Respiratory status: No respiratory distress Chest status: Nontender Breath sounds: Normal Chest palpation: Normal Course - Vital Signs Vital signs: Temp Pulse Resp BP Pulse Ox 99.1 F 100 20 124/92 H 98 10/22/17 11:42 10/22/17 11:42 10/22/17 11:42 10/22/17 11:42 10/22/17 11:42
[2017-10-22 12:33] LABS: ABSOLUTE EOSINOPHILS # (AUTO) 0.1 10^3/uL (0.0-0.6); ABSOLUTE LYMPHOCYTES (AUTO) 1.8 10^3/uL (0.5-4.7); ABSOLUTE MONOCYTES (AUTO) 0.6 10^3/uL (0.1-1.4); BASOPHILS % (AUTO) 0.3 % (0-2); EOSINOPHILS % (AUTO) 0.7 % (0-6); HEMATOCRIT 40.8 % (36.0-47.0); HEMOGLOBIN 14.1 g/dL (12.0-15.5); LYMPHOCYTES % (AUTO) 14.1 % (13-45); MEAN CORPUSCULAR HEMOGLOBIN 28.2 pg (27.0-33.4); MEAN CORPUSCULAR HGB CONC 34.6 g/dL (32.0-36.0); MEAN CORPUSCULAR VOLUME 81 fl (80-97); MONOCYTES % (AUTO) 4.6 % (3-13); PLATELET COUNT 291 10^3/uL (150-450); RED BLOOD COUNT 5.01 10^6/uL (3.72-5.28); RED CELL DISTRIBUTION WIDTH 13.3 % (11.5-14.0); SEGMENTED NEUTROPHILS % (AUTO) 80.3 % (42-78); TOTAL CELLS COUNTED % (AUTO) 100 %; WHITE BLOOD COUNT 12.4 10^3/uL (4.0-10.5)
[2017-10-22 12:35] LABS: ALANINE AMINOTRANSFERASE 14 U/L (9-52); ALBUMIN 4.7 g/dL (3.5-5.0); ALKALINE PHOSPHATASE 49 U/L (38-126); ANION GAP 15 (5-19); ASPARTATE AMINO TRANSFERASE 23 U/L (14-36); BILIRUBIN,DIRECT 0.3 mg/dL (0.0-0.4); BILIRUBIN,TOTAL 0.5 mg/dL (0.2-1.3); BLOOD UREA NITROGEN 7 mg/dL (7-20); CARBON DIOXIDE 25 mmol/L (22-30); CHLORIDE 101 mmol/L (98-107); CREATINE KINASE 31 U/L (30-135); GLUCOSE 147 mg/dL (75-110); POTASSIUM 3.3 mmol/L (3.6-5.0); SODIUM 141.3 mmol/L (137-145); TOTAL PROTEIN 7.4 g/dL (6.3-8.2)
[2017-10-22 12:46] LABS: CREATINE KINASE MB 0.28 ng/mL (<4.55); LIPASE 169.6 U/L (23-300)
[2017-10-22 12:47] LABS: TROPONIN I < 0.012 ng/mL
--- NOTE | 2017-10-22 13:05 | RADIOLOGY REPORT (SQ) ---
EXAM DESCRIPTION: CHEST SINGLE VIEW COMPLETED DATE/TIME: 10/22/2017 12:25 pm REASON FOR STUDY: Chest pain. COMPARISON: None. EXAM PARAMETERS: NUMBER OF VIEWS: One view. TECHNIQUE: Single frontal radiographic view of the chest acquired. RADIATION DOSE: NA LIMITATIONS: None. FINDINGS: LUNGS AND PLEURA: No acute infiltrates. MEDIASTINUM AND HILAR STRUCTURES: No masses. Contour normal. HEART AND VASCULAR STRUCTURES: The heart is normal with uncoiling thoracic aorta. The pulmonary vasc ulature is normal. BONES: Rotoscoliosis of the thoracolumbar spine. HARDWARE: None in the chest. OTHER: Surgical clips right upper quadrant. IMPRESSION: NO ACUTE DISEASE. TECHNICAL DOCUMENTATION: JOB ID: [id number] [employer]- All Rights Reserved Reading location - IP/workstation name: [email or web address]
[2017-10-22] MEDS ORDERED: ACETAMINOPHEN 325 MG TABLET PO PRN (14:34)
[2017-10-22] MEDS ORDERED: ONDANSETRON HCL INJ/PF 4 MG/2 ML SDV IV PRN (14:34)
[2017-10-22] MEDS ORDERED: NORMAL SALINE 1000 ML 1,000 ML IV PRN (14:34)
--- NOTE | 2017-10-22 14:37 | ER Document Report ---
ED General - General Chief Complaint: Chest Pain Stated Complaint: CHEST PAIN Time Seen by Provider: 10/22/17 12:00 Notes: 56-year-old female presents emergency department complaining of substernal chest pain that has been going on intermittently for the past month however it has been getting progressively worse, states that she woke up gasping for air this morning due to sharp stabbing type pains in her chest that radiated to her left arm and are associated with numbness and tingling. Patient states she also vomited twice and then try taking a Xanax because she thought this was a panic attack. Patient states that he did not feel like her usual panic attacks and the symptoms did not go away with the Xanax. Patient last had a stress test by Dr. Quintero approximately 3 years ago and it was negative with the exception of showing an enlarged heart. States that she has a history of chronic back pain, cardiomegaly and anxiety. Mother has a history of angina, cardiomegaly, diabetes and strokes. TRAVEL OUTSIDE OF THE [place] IN LAST 30 DAYS: No - Related Data Allergies/Adverse Reactions: tramadol HCl [From [employer]] Allergy (Severe, Verified 10/22/17 11:24) Seizure Past Medical History - General Information source: Patient - Social History Smoking Status: Never Smoker Chew tobacco use (# tins/day): No Frequency of alcohol use: None Drug Abuse: None Family History: CVA - Mother, DM Patient has suicidal ideation: No Patient has homicidal ideation: No - Past Medical History Cardiac Medical History: Reports: Hx Hypercholesterolemia Denies: Hx Heart Attack Pulmonary Medical History: Reports: Hx Pneumonia Denies: Hx COPD Neurological Medical History: Reports: Hx Seizures Renal/ Medical History: Denies: Hx Peritoneal Dialysis Psychiatric Medical History: Reports: Hx Anxiety, Hx Bipolar Disorder, Hx Depression Past Surgical History: Reports: Hx Appendectomy, Hx Section - x2, Hx Cholecystectomy, Hx Gynecologic Surgery - tubal, Hx Hysterectomy, Hx Orthopedic Surgery - back-07/16, Hx Tubal Ligation. Denies: Hx Cardiac Catheterization, Hx Cardiac Surgery - Immunizations Hx Diphtheria, Pertussis, Tetanus Vaccination: Yes - 008 Review of Systems - Review of Systems Constitutional: No symptoms reported Cardiovascular: See HPI Respiratory: See HPI Gastrointestinal: See HPI, Vomiting -: Yes All other systems reviewed and negative Physical Exam - Vital signs Vitals: Temp Pulse Resp BP Pulse Ox 99.1 F 100 20 124/92 H 98 10/22/17 11:42 10/22/17 11:42 10/22/17 11:42 10/22/17 11:42 10/22/17 11:42 Interpretation: Normal - Notes Notes: GENERAL: Alert, interacts well. No acute distress. HEAD: Normocephalic, atraumatic EYES: Pupils equal, round and reactive to light, extraocular movements intact. ENT: Oral mucosa moist, tongue midline. NECK: Full range of motion, supple, trachea midline. LUNGS: Clear to auscultation bilaterally, no wheezes, rales or rhonchi, no respiratory distress. HEART: Regular rate and rhythm, no murmurs, gallops, rubs. ABDOMEN: Soft, nontender, nondistended, bowel sounds present in all 4 quadrants. EXTREMITIES: Moves all 4 extremities spontaneously, no edema, radial and dorsalis pedis pulses 2/4 bilaterally. No cyanosis. NEUROLOGICAL: Alert and oriented x3, normal speech. PSYCH: Normal mood, normal affect. SKIN: Warm, Dry, normal turgor, no rashes or lesions noted. Course - Re-evaluation Re-evalutation: 10/22/17 14:35 CBC shows leukocytosis at 12.4, otherwise unremarkable, CMP shows low potassium at 3.3 otherwise unremarkable, cardiac enzymes negative, lipase normal, nonfasting glucose is 147. Chest x-ray shows no acute process, EKG is somewhat concerning for ischemia but not infarction with ST segment depressions in V3 and T-wave inversions in V3 4 5 and flattening in V6. Discussed this case with Dr. Medina who agrees to place patient on her service in observation status on the telemetry care unit. - Vital Signs Vital signs: Temp Pulse Resp BP Pulse Ox 99.1 F 100 20 131/95 H 97 10/22/17 11:42 10/22/17 11:42 10/22/17 16:00 10/22/17 14:01 10/22/17 16:00 - Laboratory Result Diagrams: 10/22/17 12:10 10/22/17 12:10 Laboratory results interpreted by me: 10/22/17 10/22/17 12:10 12:10 WBC 12.4 H Seg Neutrophils % 80.3 H Absolute Neutrophils 10.0 H Potassium 3.3 L Glucose 147 H - EKG Interpretation by Me Additional EKG results interpreted by me: 10/22/17 14:36 EKG shows sinus rhythm at a rate of 99, normal axis, no intervals, ST segment depressions in V3, T-wave inversions in V3 through V5 with T-wave flattening in the 6 per my interpretation. Discharge - Discharge Clinical Impression: Chest pain, rule out acute myocardial infarction Condition: Stable Disposition: ADMITTED OBSERVATION Admitting Provider: [facility] Unit Admitted: Telemetry
[2017-10-22 15:06] LABS: INTERNATIONAL RATION (INR) 0.94; PROTHROMBIN TIME 13.1 SEC (11.4-15.4)
[2017-10-22] MEDS ORDERED: ALPRAZOLAM 0.5 MG TABLET PO PRN (16:34)
--- NOTE | 2017-10-22 17:03 | RADIOLOGY REPORT (SQ) ---
EXAM DESCRIPTION: CTA CHEST COMPLETED DATE/TIME: 10/22/2017 4:53 pm REASON FOR STUDY: chest pain, abd CXR COMPARISON: Chest x-ray dated 10/22/2017. Chest CTA dated 09/24/2014. TECHNIQUE: CT scan of the chest performed using helical scanning technique with dynamic intravenous contrast injection. Images reviewed with lung, soft tissue and bone windows. Reconstructed coronal and sagittal MPR images reviewed. Additional 3 dimensional post-processing performed to develop Maximal Intensity Projection images ([place] P). All images stored on PACS. All CT scanners at this facility use dose modulation, iterative reconstruction, and/or weight based d osing when appropriate to reduce radiation dose to as low as reasonably achievable (ALARA). [facility]: Dose Right [facility]: CareDose [facility]: Dose Right [facility]: Teradose 4D [facility]: [employer] CONTRAST TYPE AND DOSE: contrast/concentration: Isovue 370.00 mg/ml; Total Contrast Delivered: 63.0 ml; Total Saline Delivered: 73.0 ml Contrast bolus adequate for pulmonary arteries and aorta. RENAL FUNCTION: BUN 7 creatinine 0.54. RADIATION DOSE: CT Rad equipment meets quality standard of care and radiation dose reduction techniq ues were employed. CTDIvol: 14.3 - 19.8 mGy. DLP: 504 mGy-cm. . LIMITATIONS: None. FINDINGS: LUNGS AND PLEURA: No masses, infiltrates, or pneumothorax. No pleural effusions or pleura l calcifications. AORTA AND GREAT VESSELS: No aneurysm. No dissection. HEART: No pericardial effusion. No significant coronary artery calcifications. PULMONARY ARTERIES: No emboli visualized in the main pulmonary arteries or the segmental branches. HILAR AND MEDIASTINAL STRUCTURES: No identified masses or abnormal nodes. HARDWARE: None in the chest. UPPER ABDOMEN: No significant findings. Limited exam. THYROID AND OTHER SOFT TISSUES: No masses. No adenopathy. BONES: Prominent scoliosis. No acute or significant finding. 3D MIPS: Confirm above findings. OTHER: No other significant finding. IMPRESSION: NORMAL CTA OF THE CHEST. NO PULMONARY EMBOLI. COMMENT: Quality ID # [id number]: Final reports with documentation of one or more dose reduction techniques (e.g., Automated exposure control, adjustment of the mA and/or kV according to patient size, use of iterative reconstruction technique) TECHNICAL DOCUMENTATION: JOB ID: [id number]- All Rights Reserved Reading location - IP/workstation name: [email or web address]
[2017-10-22 17:51] LABS: URINE AMPHETAMINES SCREEN NEGATIVE; URINE BARBITURATES SCREEN NEGATIVE; URINE BENZODIAZEPINES SCREEN NEGATIVE; URINE COCAINE SCREEN NEGATIVE; URINE MARIJUANA (THC) SCREEN NEGATIVE; URINE METHADONE SCREEN NEGATIVE; URINE PHENCYCLIDINE SCREEN NEGATIVE
[2017-10-22] MEDS ORDERED: NITROGLYCERIN 0.4 MG/TAB 25 TAB/BOTTLE SL PRN (18:27)
[2017-10-22] MEDS ORDERED: OXYCODONE PO SCH (18:30)
[2017-10-22] MEDS ORDERED: ACETAMINOPHEN PO SCH (18:30)
[2017-10-22] MEDS ORDERED: DEXTROSE 40% GEL 15 GM TUBE PO PRN ×2 (18:45)
[2017-10-22] MEDS ORDERED: GLUCAGON,HUMAN RECOMB 1 MG INJ IM PRN (18:45)
[2017-10-22] MEDS ORDERED: DEXTROSE 50%-WATER 25 GM/50 ML DISP.SYRIN IV PRN ×2 (18:45)
[2017-10-22] MEDS ORDERED: INSULIN LISPRO 100 UNIT/ML 3 ML VIAL SUBCUT PRN (18:45)
--- NOTE | 2017-10-22 18:53 | PDOC H&P ---
History of Present Illness Admission Date/PCP: 10/22/17 14:43 56-year-old woman with no known coronary disease who has had chest pain on and off for the past few weeks. She was awakened last night by chest pain at rest and came into the ER. She had an abnormal EKG with T-wave inversions during chest pain. Troponin #1 is negative and second is pending. Patient refuses transfer despite my being in her room multiple times spending a significant amount of time with her trying to discuss the dangers related to not being in the hospital that can properly treat acute coronary syndrome. No dyspnea. No fevers or chills. No cough or sputum. 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 Psychiatric Medical History: Reports: Bipolar Disorder, Depression, General Anxiety Disorder, Other - Insomnia Hematology: Reports: None Infectious Medical History: Reports: None Past Surgical History Past Surgical History: Reports: Appendectomy, Section - x2, Cholecystectomy, Hysterectomy, Orthopedic Surgery - back-07/16, Tubal Ligation Denies: Cardiac Catheterization Social History Information Source: Patient Occupation: Disabled Lives with: Alone Smoking Status: Former Smoker Frequency of Alcohol Use: Occasional Hx Recreational Drug Use: No Hx Prescription Drug Abuse: No - Advance Directive Resuscitation Status: Full Code Surrogate healthcare decision maker:: Daughter Vilma Marley number [phone] Family History Parental Family History Reviewed: Yes - Father in a car crash, mother has COPD/hypertension/diabetes Children Family History Reviewed: Yes - 3 healthy children Sibling(s) Family History Reviewed.: Yes - One sister with type 2 diabetes Medication/Allergy Home Medications: Alprazolam [Xanax] 1 mg PO QHS 09/24/14 Oxycodone HCl 15 mg PO Q4 09/24/14 Oxymorphone HCl [Opana ER] 10 mg PO BID 09/24/14 Quetiapine Fumarate [Seroquel] 50 mg PO Q8 09/24/14 Trazodone HCl [Desyrel 50 mg Tablet] 50 mg PO QHS 09/24/14 Aspirin [Aspirin 81 mg Chewable Tablet] 81 mg PO DAILY #0 tab.chew 09/25/14 Oxycodone HCl/Acetaminophen [Percocet 10-325 mg Tablet] 30 mg PO Q6 10/22/17 Allergies/Adverse Reactions: tramadol HCl [From [facility]] Allergy (Severe, Verified 10/22/17 11:24) Seizure Review of Systems Constitutional: ABSENT: chills, fatigue Eyes: PRESENT: other - Wears glasses Ears: ABSENT: hearing changes Nose, Mouth, and Throat: ABSENT: sore throat Cardiovascular: PRESENT: chest pain. ABSENT: dyspnea on exertion, edema, palpitations Respiratory: ABSENT: cough, sputum Gastrointestinal: ABSENT: abdominal pain, diarrhea, nausea, vomiting Genitourinary: ABSENT: difficulty urinating, dysuria Musculoskeletal: PRESENT: back pain. ABSENT: muscle weakness Integumentary: ABSENT: lesions, rash Neurological: ABSENT: syncope, weakness Psychiatric: PRESENT: anxiety, depression. ABSENT: suicidal ideation Endocrine: ABSENT: cold intolerance, heat intolerance Hematologic/Lymphatic: ABSENT: easy bleeding, easy bruising Allergic/Immunologic: ABSENT: seasonal rhinorrhea Physical Exam Vital Signs: Temp Pulse Resp BP Pulse Ox 99.1 F 100 20 131/95 H 97 10/22/17 11:42 10/22/17 11:42 10/22/17 16:00 10/22/17 14:01 10/22/17 16:00 General appearance: PRESENT: mild distress, thin Head exam: PRESENT: atraumatic, normocephalic Eye exam: PRESENT: EOMI. ABSENT: conjunctival injection, scleral icterus Ear exam: PRESENT: normal external ear exam Mouth exam: PRESENT: neck supple, tongue midline Respiratory exam: PRESENT: unlabored. ABSENT: clear to auscultation rhonda, retraction, rhonchi, wheezes Cardiovascular exam: PRESENT: RRR. ABSENT: systolic murmur Pulses: PRESENT: normal radial pulses GI/Abdominal exam: PRESENT: normal bowel sounds, soft. ABSENT: distended, firm , guarding, tenderness Rectal exam: PRESENT: deferred Extremities exam: ABSENT: calf tenderness, pedal edema Neurological exam: PRESENT: alert, awake, oriented to person, oriented to place , oriented to situation, CN II-XII grossly intact Psychiatric exam: PRESENT: anxious. ABSENT: appropriate affect Skin exam: PRESENT: dry, intact, warm Results Impressions: Chest/Abdomen CTA 10/22/17 00:00 IMPRESSION: NORMAL CTA OF THE CHEST. NO PULMONARY EMBOLI. Chest X-Ray 10/22/17 12:00 IMPRESSION: NO ACUTE DISEASE. Assessment & Plan - Diagnosis (1) Chest pain, rule out acute myocardial infarction Is this a current diagnosis for this admission?: Yes Plan: Patient is admitted with chest pain. No known coronary artery disease. She is now chest pain-free after receiving her oxycodone. She had abnormal EKG with T- wave inversions in the anterior leads chest pain. We have recommended that she transfer to a higher level of care and after spending a significant amount of time in her room and on her case, greater than 70 minutes, she has refused to transfer. Her daughter is unable to convince her. There are multiple family problems and she does not want to leave the [place] area. So we will admit her to the hospital for, of note she insists that she will leave tomorrow. I have consulted Dr. Webb. I have ordered a daily aspirin. We will recheck EKG this evening. She is chest pain-free so is not receiving nitroglycerin. I will place her on oxygen. We will replace her electrolytes potassium is slightly low. Troponins will be followed throughout the night. (2) Bipolar disorder Is this a current diagnosis for this admission?: Yes Plan: Have ordered her Seroquel. (3) Chronic use of opiate drugs therapeutic purposes Is this a current diagnosis for this admission?: Yes Plan: Patient has been on Opana and oxycodone for years. She is currently seeing a pain specialist who is helping her wean down slowly. I have ordered both of these medications as they are prescribed. She states understanding of opiate dependence and would like to wean off of these drugs as best she can, to help of her doctor. (4) Anxiety Is this a current diagnosis for this admission?: Yes Plan: She is on Xanax nightly. I have ordered Xanax 1 mg p.o. twice daily as she is having significant acute anxiety. (5) Hypokalemia Is this a current diagnosis for this admission?: Yes Plan: Potassium is 3.3. She is receiving 40 mEq of IV potassium. BMP will be checked later tonight. - Time Time Spent: Greater than 70 Minutes Medications reviewed and adjusted accordingly: Yes - Inpatient Certification Based on my medical assessment, after consideration of the patient's comorbidities, presenting symptoms, or acuity I expect that the services needed warrant INPATIENT care.: Yes I certify that my determination is in accordance with my understanding of Medicare's requirements for reasonable and necessary INPATIENT services [42 CFR 412.3e].: Yes Medical Necessity: Need Close Monitoring Due to Risk of Patient Decompensation, Risk of Complication if Not Cared For in Hospital
--- NOTE | 2017-10-22 19:11 | PDOC CONSULTATION ---
Consultation Consult Date: 10/22/17 Attending physician:: MANISHA MACIAS Consult reason:: Chest pain History of Present Illness Admission Date/PCP: 10/22/17 14:43 Patient complains of: Chest pain History of Present Illness: OLIVIA EDMOND is a 56 year old female with no known coronary disease who has had chest pain on and off for the past few weeks. She was awakened last night by chest pain at rest and came into the ER. She had an abnormal EKG with T- wave inversions during chest pain. Troponin #1 is negative and second is pending. Patient refuses transfer despite my being in her room multiple times spending a significant amount of time with her trying to discuss the dangers related to not being in the hospital that can properly treat acute coronary syndrome. No dyspnea. No fevers or chills. No cough or sputum. Patient describes intermittent chest discomfort for last several days. They sometime occur on exertion and sometimes with emotional stress. Patient describes history of stress test performed about 3 years ago which she claims was negative. 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 Psychiatric Medical History: Reports: Bipolar Disorder, Depression, General Anxiety Disorder, Other - Insomnia Hematology: Reports: None Infectious Medical History: Reports: None Past Surgical History Past Surgical History: Reports: Appendectomy, Section - x2, Cholecystectomy, Hysterectomy, Orthopedic Surgery - back-07/16, Tubal Ligation Denies: Cardiac Catheterization Social History Information Source: Patient Lives with: Alone Smoking Status: Former Smoker Frequency of Alcohol Use: Occasional Hx Recreational Drug Use: No Hx Prescription Drug Abuse: No - Advance Directive Resuscitation Status: Full Code Surrogate healthcare decision maker:: Patient's daughter is the surrogate decision-maker Family History Family History: CAD Parental Family History Reviewed: Yes Children Family History Reviewed: Yes Sibling(s) Family History Reviewed.: Yes Medication/Allergy Home Medications: Alprazolam [Xanax] 1 mg PO QHS 09/24/14 Oxycodone HCl 15 mg PO Q4 09/24/14 Oxymorphone HCl [Opana ER] 10 mg PO BID 09/24/14 Quetiapine Fumarate [Seroquel] 50 mg PO Q8 09/24/14 Trazodone HCl [Desyrel 50 mg Tablet] 50 mg PO QHS 09/24/14 Aspirin [Aspirin 81 mg Chewable Tablet] 81 mg PO DAILY #0 tab.chew 09/25/14 Oxycodone HCl/Acetaminophen [Percocet 10-325 mg Tablet] 30 mg PO Q6 10/22/17 Allergies/Adverse Reactions: tramadol HCl [From [facility]] Allergy (Severe, Verified 10/22/17 11:24) Seizure Review of Systems Review of Systems: Please see history of present illness and past medical history as wall. Constitutional: No fever or chills reported. Head : No recent chronic headaches, recent head injury. Eyes: No recent eye pain, diplopia, redness, discharge, acute visual changes. Ears: No recent chronic ear pain, acute hearing loss, ear discharge. Oral cavity: No recent ulcerations, bleeding, oral cavity discomfort. Neck: No recent acute neck pain reported. Hematologic: No recent easy bruising or bleeding. Lymphatic: No recent lymph node enlargement reported. Cardiovascular system review: See history of present illness. Respiratory system review: No hemoptysis or blood clots in the lungs reported. Mild Shortness of breath on exertion Gastrointestinal system review: Negative for any recent acute hematemesis, melena. Genitourinary system review: No recent acute or chronic hematuria, flank pain, UTI etc. reported. Skin system review: Negative for any recent abnormal bruising, no rash, no pruritus reported. Neurologic: No prior history of strokes, mini strokes, seizure disorder. Psychologic: No history of major psychosis or major depression reported. Patient describes history of bipolar disorder, minor depression. Musculoskeletal: Minor aches and pains reported. No acute joint swelling reported. Endocrine: No recent polyuria, polydipsia, recent heat or cold intolerance. Physical Exam Vital Signs: Temp Pulse Resp BP Pulse Ox 99.1 F 100 20 131/95 H 97 10/22/17 11:42 10/22/17 11:42 10/22/17 16:00 10/22/17 14:01 10/22/17 16:00 Exam: GENERAL: well-nourished and in no acute distress. Alert and oriented x3. Patient does seem anxious. HEAD: Atraumatic, normocephalic. EYES: Pupils equal round and reactive to light, extraocular movements intact, sclera anicteric, conjunctiva are normal. ENT: TMs normal, nares patent, oropharynx clear without exudates. Moist mucous membranes. No oral ulcerations or bleeding gums noted NECK: supple without lymphadenopathy. Trachea is central. No cervical or axillary lymphadenopathy noted. Carotids are 2+, JVD WNL LUNGS: Respiration seems nonlabored, no significant accessory muscle action noted. Breath sounds clear to auscultation bilaterally and equal noted. No wheezes rales or rhonchi noted. No significant dullness noted on percussion. CHEST: Palpation of the chest wall shows no significant chest wall tenderness. 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 ABDOMEN: Soft, no significant tenderness appreciated, normoactive bowel sounds. No guarding, no rebound. No rigidity noted . No masses appreciated. EXTREMITIES: Pedal pulses are 1-2+, no calf tenderness noted. No clubbing or cyanosis. negative pedal edema noted NEUROLOGICAL: Focused neurological exam showed no significant neurologic deficit. Normal speech, no focal weakness appreciated. PSYCH: Normal mood, normal affect. Judgment and insight within normal limits. SKIN: No significant ecchymosis, skin is noted to be warm. MUSCULOSKELETAL EXAM: No significant acute joint swelling noted. Results EKG Comments: 212-lead EKGs are available for review. Both these show sinus rhythm, ST-T wave changes consistent with ischemia. Impressions: Chest/Abdomen CTA 10/22/17 00:00 IMPRESSION: NORMAL CTA OF THE CHEST. NO PULMONARY EMBOLI. Chest X-Ray 10/22/17 12:00 IMPRESSION: NO ACUTE DISEASE. Assessment & Plan - Diagnosis (1) Chest pain, rule out acute myocardial infarction Is this a current diagnosis for this admission?: Yes (2) Chronic use of opiate drugs therapeutic purposes Is this a current diagnosis for this admission?: Yes (5) Chronic pain syndrome Is this a current diagnosis for this admission?: Yes (6) Hypokalemia Is this a current diagnosis for this admission?: Yes (7) Abnormal electrocardiogram Is this a current diagnosis for this admission?: Yes - Notes Notes: Chest pain: Patient has some EKG changes. She does have some risk factors. EKG changes could be related to hypokalemia, anxiety disorder with depression but she does have a good history. At this point agree with AL rule out protocol. Once patient stabilized will recommend evaluation with a nuclear stress test. Will order a 2D echo for risk stratification. At this point will start patient on aspirin, beta-blockers, Lovenox, statins. Abnormal electrocardiogram: Exact etiology not clear but could be ischemia, hypokalemia related, anxiety, hyperventilation related. Further evaluation is indicated with a 2D echo and nuclear stress test. This will be scheduled Hyperlipidemia: Recommend high potency statin therapy. Hypokalemia: Recommend replacing to keep potassium above 3.8 mg/L. Depression: Continue home antidepressant. Chronic pain syndrome: Continue patient's home medications but adjust as needed. Plan to schedule a stress test once patient ruled out. - Time Time Spent: 30 to 50 Minutes - CODE STATUS was discussed, patient remains full code. Surrogate decision-maker unchanged. Multiple medical problems were addressed. More than 50% of the time spent coordinating care, discussing management plans with involved caregivers. Management plans discussed with involved personnels. Medical decision making was of moderate to high complexity , patient's has multiple comorbidities. Medications reviewed and adjusted accordingly: Yes
[2017-10-22 19:15] LABS: CREATINE KINASE MB 0.28 ng/mL (<4.55)
[2017-10-22 19:17] LABS: TROPONIN I < 0.012 ng/mL
[2017-10-22] MEDS ORDERED: METOPROLOL SUCCINATE 25 MG TAB.SR.24H PO ONE (19:30)
[2017-10-22] MEDS ORDERED: OXYCODONE HCL IR 5 MG TABLET PO ONE (19:49)
[2017-10-22] MEDS: POTASSI CL 20 MEQ/50 ML RIDER 20 MEQ/50 ML RTUPB IV SCH ×2 (20:17→22:53)
[2017-10-22] MEDS ORDERED: HYDROMORPHONE HCL INJ/PF 2 MG/ML AMPULE IV ONE (20:28)
[2017-10-22] MEDS ORDERED: LORAZEPAM INJ 2 MG/1 ML VIAL IV ONE (20:30)
[2017-10-22] MEDS ORDERED: TRAZODONE HCL 50 MG TABLET PO SCH (22:00)
[2017-10-22] MEDS ORDERED: ATORVASTATIN CALCIUM 40 MG TABLET PO SCH (22:00)
[2017-10-22] MEDS: QUETIAPINE FUMARATE 25 MG TABLET PO SCH (22:53)
[2017-10-22] MEDS: HEPARIN SOD (PORCINE) 5,000 UNIT/ML 1 ML SYRINGE SUBCUT SCH (22:54)
--- NOTE | 2017-10-22 23:05 | EKG REPORT ---
SEVERITY:- ABNORMAL ECG - SINUS RHYTHM ABNORMAL T, CONSIDER ISCHEMIA, ANT-LAT LEADS : Confirmed by: Neelima Webb 22-Oct-2017 23:04:58
--- NOTE | 2017-10-22 23:05 | EKG REPORT ---
SEVERITY:- NORMAL ECG - SINUS RHYTHM BORDERLINE T WAVE ABNORMALITIES : Confirmed by: Neelima Webb 22-Oct-2017 23:05:32
[2017-10-23 01:39] LABS: TROPONIN I < 0.012 ng/mL
[2017-10-23] MEDS: HEPARIN SOD (PORCINE) 5,000 UNIT/ML 1 ML SYRINGE SUBCUT SCH ×2 (05:06→13:16)
[2017-10-23] MEDS: OXYCODONE HCL IR 5 MG TABLET PO PRN ×2 (06:37→13:13)
[2017-10-23] MEDS: QUETIAPINE FUMARATE 25 MG TABLET PO SCH ×2 (06:37→13:16)
--- NOTE | 2017-10-23 06:51 | EKG REPORT ---
SEVERITY:- ABNORMAL ECG - SINUS RHYTHM FIRST DEGREE AV BLOCK NONSPECIFIC T ABNORMALITIES, ANTERIOR LEADS : Confirmed by: Neelima Webb 23-Oct-2017 06:50:29
[2017-10-23 07:19] LABS: HEMOGLOBIN 12.8 g/dL (12.0-15.5); MEAN CORPUSCULAR HEMOGLOBIN 28.4 pg (27.0-33.4); MEAN CORPUSCULAR HGB CONC 35.6 g/dL (32.0-36.0); MEAN CORPUSCULAR VOLUME 80 fl (80-97); PLATELET COUNT 240 10^3/uL (150-450); RED BLOOD COUNT 4.52 10^6/uL (3.72-5.28); RED CELL DISTRIBUTION WIDTH 13.4 % (11.5-14.0)
[2017-10-23 07:45] LABS: ANION GAP 11 (5-19); BLOOD UREA NITROGEN 10 mg/dL (7-20); CALCIUM 9.8 mg/dL (8.4-10.2); CARBON DIOXIDE 26 mmol/L (22-30); CHLORIDE 105 mmol/L (98-107); CHOLESTEROL 218.94 mg/dL (0-200); CREATINE KINASE 24 U/L (30-135); GLUCOSE 90 mg/dL (75-110); TRIGLYCERIDES 152 mg/dL (<150)
[2017-10-23 07:55] LABS: CREATINE KINASE MB 0.28 ng/mL (<4.55)
[2017-10-23 07:56] LABS: DIRECT LDL 146 mg/dL (<100)
[2017-10-23 07:58] LABS: TROPONIN I < 0.012 ng/mL
[2017-10-23 08:02] LABS: VLDL CHOLESTEROL 30.4 mg/dL (10-31)
[2017-10-23] MEDS ORDERED: (PENDING PHARMACY ID) (Oxymorphone Hcl [Opana Er] 10 MG) PO SCH (10:00)
[2017-10-23] MEDS ORDERED: METOPROLOL SUCCINATE 25 MG TAB.SR.24H PO SCH (10:00)
--- NOTE | 2017-10-23 11:21 | PDOC PROGRESS REPORT ---
Subjective Progress Note for:: 10/23/17 Subjective:: Patient seems to be doing better. Pt is denying any chest arm or neck discomfort. Patient denying any PND, orthopnea. Patient denied any sustained palpitations, dizziness, syncope, near syncope. Patient denying any fever chills. Patient denying any other significant discomfort. Patient is maintaining sinus rhythm. Review of systems: Rest review of systems negative. Medications: Medications have been reviewed. Reason For Visit: CHEST PAIN, RULE OUT ACUTE ,MYOCARDIAL INFRACTION Physical Exam Vital Signs: Temp Pulse Resp BP Pulse Ox 97.8 F 61 17 117/77 100 10/23/17 07:06 10/23/17 07:06 10/23/17 07:06 10/23/17 07:06 10/23/17 07:06 Intake & Output 10/22/17 10/23/17 10/24/17 06:59 06:59 06:59 Intake Total 236 Balance 236 Weight 58.1 kg Exam: GENERAL: well-nourished and in no acute distress. Alert and oriented x3 HEAD: Atraumatic, normocephalic. EYES: Pupils equal round and reactive to light, extraocular movements intact, sclera anicteric, conjunctiva are normal. ENT: TMs normal, nares patent, oropharynx clear without exudates. Moist mucous membranes. No oral ulcerations or bleeding gums noted NECK: supple without lymphadenopathy. Trachea is central. No cervical or axillary lymphadenopathy noted. Carotids are 2+, JVD WNL LUNGS: Respiration seems nonlabored, no significant accessory muscle action noted. Breath sounds clear to auscultation bilaterally and equal noted. No wheezes rales or rhonchi noted. No significant dullness noted on percussion. CHEST: Palpation of the chest wall shows no significant chest wall tenderness. 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 ABDOMEN: Soft, no significant tenderness appreciated, normoactive bowel sounds. No guarding, no rebound. No rigidity noted . No masses appreciated. EXTREMITIES: Pedal pulses are 1-2+, no calf tenderness noted. No clubbing or cyanosis. negative pedal edema noted NEUROLOGICAL: Focused neurological exam showed no significant neurologic deficit. Normal speech, no focal weakness appreciated. PSYCH: Normal mood, normal affect. Judgment and insight within normal limits. SKIN: No significant ecchymosis, skin is noted to be warm. MUSCULOSKELETAL EXAM: No significant acute joint swelling noted. Kyphoscoliosis noted Results Laboratory Results: 10/23/17 06:52 10/23/17 06:52 10/23/17 10/23/17 06:52 06:52 WBC 8.0 RBC 4.52 Hgb 12.8 Hct 36.0 MCV 80 MCH 28.4 MCHC 35.6 RDW 13.4 Plt Count 240 Sodium 142.0 Potassium 4.0 Chloride 105 Carbon Dioxide 26 Anion Gap 11 BUN 10 Creatinine 0.59 Est GFR ( Amer) > 60 Est GFR (Non-Af Amer) > 60 Glucose 90 Calcium 9.8 Triglycerides 152 H Cholesterol 218.94 H LDL Cholesterol Direct 146 H VLDL Cholesterol 30.4 HDL Cholesterol 49 10/22/17 10/22/17 10/23/17 18:35 18:35 00:44 Creatine Kinase 27 L CK-MB (CK-2) 0.28 0.30 Troponin I < 0.012 < 0.012 10/23/17 10/23/17 10/23/17 00:44 06:52 06:52 Creatine Kinase 28 L 24 L CK-MB (CK-2) 0.28 Troponin I < 0.012 EKG Comments: Telemetry shows sinus rhythm without any sustained tachycardia or bradycardia Impressions: Chest/Abdomen CTA 10/22/17 00:00 IMPRESSION: NORMAL CTA OF THE CHEST. NO PULMONARY EMBOLI. Chest X-Ray 10/22/17 12:00 IMPRESSION: NO ACUTE DISEASE. Assessment & Plan - Diagnosis (1) Chest pain, rule out acute myocardial infarction Is this a current diagnosis for this admission?: Yes (2) Chronic use of opiate drugs therapeutic purposes Is this a current diagnosis for this admission?: Yes (5) Chronic pain syndrome Is this a current diagnosis for this admission?: Yes (6) Hypokalemia Is this a current diagnosis for this admission?: Yes (7) Abnormal electrocardiogram Is this a current diagnosis for this admission?: Yes - Notes Notes: Chest pain: Patient has some EKG changes. She does have some risk factors. EKG changes could be related to hypokalemia, anxiety disorder with depression but she does have a good history. Myocardial infarction has been ruled out. Patient has been recommended evaluation with a nuclear stress test. 2D echo ordered is pending. Continue patient on aspirin, beta-blockers, Lovenox, statins. Abnormal electrocardiogram: Exact etiology not clear but could be ischemia, hypokalemia related, anxiety, hyperventilation related. Further evaluation is indicated with a 2D echo and nuclear stress test. This will be scheduled. These tests are pending. Hyperlipidemia: Recommend high potency statin therapy. Hypokalemia: Recommend replacing to keep potassium above 3.8 mg/L. Depression: Continue home antidepressant. Chronic pain syndrome: Continue patient's home medications but adjust as needed. - Time Time with patient: Greater than 35 minutes - CODE STATUS was discussed, patient remains full code. Surrogate decision-maker unchanged. Multiple medical problems were addressed. More than 50% of the time spent coordinating care, discussing management plans with involved caregivers. Management plans discussed with involved personnels. Medical decision making was of moderate to high complexity, patient's has multiple comorbidities. Medications reviewed and adjusted accordingly: Yes
[2017-10-23 12:01] VITALS: BP 112/84
--- NOTE | 2017-10-23 14:33 | PDOC DISCHARGE SUMMARY ---
General - Admit/Disc Date/PCP Admission Date/Primary Care Provider: 10/22/17 14:43 Discharge Date: 10/23/17 - Discharge Diagnosis (2) Left against medical advice Is this a current diagnosis for this admission?: Yes (3) Bipolar disorder Is this a current diagnosis for this admission?: Yes (4) Chronic use of opiate drugs therapeutic purposes Is this a current diagnosis for this admission?: Yes (5) Hypokalemia Is this a current diagnosis for this admission?: Yes (6) Anxiety Is this a current diagnosis for this admission?: Yes - Additional Information Resuscitation Status: Full Code Home Medications: Gabapentin [Neurontin 400 mg Capsule] 400 mg PO Q8 10/23/17 Lorazepam [Ativan 1 mg Tablet] 1 mg PO Q12HP PRN 10/23/17 Oxycodone HCl [Roxicodone] 30 mg PO Q6 10/23/17 Oxymorphone HCl [Oxymorphone HCl ER] 10 mg PO Q12 10/23/17 Quetiapine Fumarate [Seroquel] 150 mg PO QHS 10/23/17 Trazodone HCl [Desyrel] 75 mg PO QHS 10/23/17 History of Present Illness History of Present Illness: Patient was admitted after presentation as in HPI below: "56-year-old woman with no known coronary disease who has had chest pain on and off for the past few weeks. She was awakened last night by chest pain at rest and came into the ER. She had an abnormal EKG with T-wave inversions during chest pain. Troponin #1 is negative and second is pending. Patient refuses transfer despite my being in her room multiple times spending a significant amount of time with her trying to discuss the dangers related to not being in the hospital that can properly treat acute coronary syndrome. No dyspnea. No fevers or chills. No cough or sputum." Hospital Course Hospital Course: Patient was admitted. He was treated with aspirin and heparin subcu. Patient rule out for [place] with serial troponins. She was seen by Dr. Webb of cardiology and he had 2D echo done. He also recommended a stress test. However outpatient was very anxious, states she had things to do and did not want to remain in the hospital. She signed out AGAINST MEDICAL ADVICE before the stress test can be done. She stated that she will follow-up with Dr. Webb of cardiology in his clinic. Risk and benefits of signing out MEETA communicated and she verbalized understanding. 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 Physical Exam Vital Signs: Temp Pulse Resp BP Pulse Ox 98.0 F 80 17 112/84 98 10/23/17 10:55 10/23/17 10:55 10/23/17 10:55 10/23/17 10:55 10/23/17 10:55 Intake & Output 10/22/17 10/23/17 10/24/17 06:59 06:59 06:59 Intake Total 236 Balance 236 Weight 58.1 kg GEN: NAD, well-developed, well-nourished CV: RRR, NL S1S2 LUNGS: CTA bilaterally ABDOMEN Soft, NT, +BS EXTERMITIES: No e/c/c NEURO: Alert, oriented 3, nonfocal Results Laboratory Results: 10/23/17 06:52 10/23/17 06:52 10/23/17 10/23/17 06:52 06:52 WBC 8.0 RBC 4.52 Hgb 12.8 Hct 36.0 MCV 80 MCH 28.4 MCHC 35.6 RDW 13.4 Plt Count 240 Sodium 142.0 Potassium 4.0 Chloride 105 Carbon Dioxide 26 Anion Gap 11 BUN 10 Creatinine 0.59 Est GFR ( Amer) > 60 Est GFR (Non-Af Amer) > 60 Glucose 90 Calcium 9.8 Triglycerides 152 H Cholesterol 218.94 H LDL Cholesterol Direct 146 H VLDL Cholesterol 30.4 HDL Cholesterol 49 10/22/17 10/22/17 10/23/17 18:35 18:35 00:44 Creatine Kinase 27 L CK-MB (CK-2) 0.28 0.30 Troponin I < 0.012 < 0.012 10/23/17 10/23/17 10/23/17 00:44 06:52 06:52 Creatine Kinase 28 L 24 L CK-MB (CK-2) 0.28 Troponin I < 0.012 Impressions: Chest/Abdomen CTA 10/22/17 00:00 IMPRESSION: NORMAL CTA OF THE CHEST. NO PULMONARY EMBOLI. Chest X-Ray 10/22/17 12:00 IMPRESSION: NO ACUTE DISEASE. Qualifiers - * PATIENT BEING DISCHARGED WITH ANY OF THE FOLLOWING DIAGNOSIS: No Plan Time Spent: Less than 30 Minutes
== END 2017-10-23 13:53 | disposition left against medical advice (07) ==
LOC: ER 11:20 → EH 14:43 → 4S 22:07
PROVIDERS: ADMIT Internal Medicine; ATTEND Internal Medicine
DX: Z53.21 Procedure and treatment not carried out due to patient leaving prior to being seen by health care provider (principal); R07.9 Chest pain, unspecified; F31.9 Bipolar disorder, unspecified; E87.6 Hypokalemia; F41.9 Anxiety disorder, unspecified; R94.31 Abnormal electrocardiogram [ECG] [EKG]; R06.02 Shortness of breath; G89.4 Chronic pain syndrome; M41.9 Scoliosis, unspecified; D72.829 Elevated white blood cell count, unspecified; R11.2 Nausea with vomiting, unspecified; Z79.891 Long term (current) use of opiate analgesic; Z90.49 Acquired absence of other specified parts of digestive tract; Z98.890 Other specified postprocedural states; Z87.891 Personal history of nicotine dependence; Z79.899 Other long term (current) drug therapy; Z82.49 Family history of ischemic heart disease and other diseases of the circulatory system; Z79.82 Long term (current) use of aspirin; Z82.5 Family history of asthma and other chronic lower respiratory diseases; Z98.51 Tubal ligation status; Z90.710 Acquired absence of both cervix and uterus
CPT/HCPCS: 93005 ×2; 99285; 96375; 96365; 96366; 36415; 82553 ×2; 82962; 82550 ×2; 83690; 83735; 84443; 85025; 85027; 85610; 85730; 80048; 80053; 84484 ×2; 80307; 80061; 83880; 71045; 71275; 93010; G0378 ×2; A9270 ×10; J3490 ×2; J1170; J2060; J3480; J7030

== ENCOUNTER 2017-10-25 14:21 | Emergency (ER) | payer MEDICARE ==
[2017-10-25 14:34] VITALS: BP 126/86
== END 2017-10-25 16:31 | disposition left against medical advice (07) ==
LOC: ER 14:21
DX: Z53.21 Procedure and treatment not carried out due to patient leaving prior to being seen by health care provider (principal)